=== PATIENT | male | born 1985 | race African-American/Black ===

== ENCOUNTER 2025-03-13 13:34 | Emergency (ER) | payer SELFPAY ==
--- NOTE | 2025-03-13 13:56 | ED.GENMED ---
History of Present Illness
General
Chief Complaint: Musculo-Skeletal Complaint
Source: patient
Exam Limitations: none
Time Seen by Provider: 03/13/25 13:55
Nursing documentation reviewed up to this point in time: agreed with
History of Present Illness
History of Present Illness:
TIME OF INITIAL EVALUATION
-14:09
REVIEW OF OLD RECORDS
- No prior records
CHIEF COMPLAINT(S)
Whole body cramping.
HISTORY OF PRESENT ILLNESS
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 Due
to the cramping�he fell down into the mulch although denies any injury. He denies any head strike. He denies any loss of consciousness or confusion. He denies any associated chest pain, shortness of breath, or dizziness associated with cramping.
The patient does report that it was very hot outside he is working however he did drink Gatorade and ate earlier today.
At time of my evaluation this patient symptoms have improved although he still feels a degree of cramping. No other concerns today.
SOCIAL HISTORY
The patient reports recreational cannabis use
Review of Systems
Review of Systems
Allergies reviewed?: Yes
All Other Systems: ROS reviewed and negative except as documented in HPI and ROS
Phy Exam
Physical Exam
Physical Exam:
PHYSICAL EXAM
- Vitals: Vital signs stable. Afebrile
- General: Well appearing in no distress.
- HEENT: Moist oral mucosa
- Cardiovascular: No murmurs, normal heart rate, regular rhythm, No chest wall tenderness
- Pulmonary: No respiratory distress, breath sounds are clear and equal
- Abdomen: Soft with no peritoneal signs, no tenderness
- Neurologic: Excellent strength all extremities, no coordination deficits
- Psychiatric: Appropriate mental status, normal insight and judgement
- Extremities: Nontender, no edema, moves all extremities equally. Negative Homans' sign bilaterally
- Skin: No rash, no lesions. Covered in mulch
Course
Orders/Labs/Results
Orders:
Orders
03/13/25 14:12
0.9% Sodium Chloride 1000 ml [Nss] 1,000 ml IV BOLUS
Ketorolac [Toradol] 15 mg IV NOW STA
03/13/25 14:44
Complete Blood Count/With Diff Urgent
Comprehensive Metabolic Panel Urgent
Magnesium Urgent
Total CK [Creatine Phosphokinase] Urgent
Abnormal Lab Results
03/13/25
14:44
WBC 10.9 H 10^3/uL
(4.8-10.8)
MPV 11.3 H fL
(7.4-10.4)
Abs Immat Gran (auto) 0.1 H 10^3/uL
(0-0.05)
Absolute Neuts (auto) 7.9 H 10^3/uL
(1.4-6.5)
Absolute Monos (auto) 0.7 H 10^3/uL
(0.1-0.6)
Immature Gran % 1.1 H %
(0-0.5)
Lymphocytes % 19.1 L %
(20.5-51.1)
Chloride 108 H mmol/L
(98-107)
Carbon Dioxide 20 L mmol/L
(22-30)
Creatinine 1.4 H mg/dL
(0.7-1.3)
Glucose 187 H mg/dl
(70-99)
Calcium 10.8 H mg/dl
(8.4-10.2)
Creatine Kinase 813 H U/L
(55-170)
Total Protein 8.7 H g/dl
(6.3-8.2)
Albumin 5.2 H g/dl
(3.5-5.0)
03/13/25 14:44
03/13/25 14:44
Vital Signs
Blood pressure: 105/71
Initial and Last Documented VS:
Initial Vital Signs
Pulse Resp Pulse Ox
60 20 100
03/13/25 13:43 03/13/25 13:43 03/13/25 13:43
Last Documented Vital Signs
Temp Pulse Resp BP Pulse Ox
97.8 F 54 19 105/71 98
03/13/25 16:59 03/13/25 16:59 03/13/25 16:59 03/13/25 16:59 03/13/25 14:05
MDM/Problems Addressed
Differential Diagnosis Includes:
The Differential Diagnosis includes, in no particular order and is not limited to:
- Electrolyte imbalance
- Dehydration
- Heat-related illness
- Acute exertional rhabdomyolysis
- Muscle strain or fatigue
- Hypocalcemia
- Hypomagnesemia
- Neurological disorder (less likely)
- Cardiac event (less likely)
- Infection (less likely)
MDM/Problems Addressed:
SUMMARY OF ENCOUNTER
The patient is a 39-year-old male who presented with full-body cramping after working outside in significant heat. He denied syncope or loss of consciousness, but experienced cramping severe enough to cause a fall. No injuries reported. Suspect
symptoms secondary to heat. ED plan: Check labs, CPK, and give IVF.
The patient received two liters of intravenous fluids, one in the ambulance and one in the emergency department. The patients symptoms resolved, and his vital signs remained stable.
INDEPENDENT REVIEW OF LABS AND INTERPRETATION OF TESTS
My independent review of the chemistry panel shows evidence of dehydration with elevated kidney function, Cr. 1.4 and elevated creatine kinase, 813.
Update: Patient symptoms have completely resolved after 2L IVF. He is ambulating around emergency department room without difficulty. He was rehydrated with 2L IVF. Feel stable for discharge home w/ close outpatient follow-up.
DISPOSITION & PLAN
The patient was discharged with instructions for careful monitoring and follow-up.
The plan includes educating the patient on hydration, advising rest, and providing follow-up with a free clinic to repeat laboratory work in one to two weeks to ensure normalization of kidney function and other potential abnormalities.
PATIENT EDUCATION AND COUNSELING
The patient was advised to stay well-hydrated, rest, and avoid excessive heat exposure. Emphasis was placed on the importance of follow-up lab work to ensure kidney function normalization.
FOLLOW-UP INSTRUCTIONS
The patient was instructed to follow up with a free clinic for repeat lab testing in one to two weeks and return to the emergency department if significant symptoms, such as infection, dehydration, or urinary difficulties, develop.
MEDICAL DECISION MAKING
1. Number & Complexity of Problems: Acute dehydration and elevated kidney function, likely secondary to heat and physical exertion.
2. Data Reviewed: Chemistry panel reviewed showing evidence of dehydration and elevation in kidney function and creatine kinase. Monitoring of response to intravenous fluid administration.
3. Risk: Consideration of admission/observation was made due to elevated kidney function but was determined unnecessary due to symptom resolution, normal vital signs, and planned follow-up.
Chronic conditions affecting care:
N/A
Acute Exacerbation and/or Progression of Chronic Illness:
N/A
*Pulse Oximetry
SaO2: 100
Oxygen Mode of Delivery: Room air
Patient hypoxic: no
*EKG
Interpreted by ED Provider?: NA
*Payroll Accounting Clerk Interpretation
Rate: Payroll Accounting Clerk- N/A
*Critical Care Note
Total Time (30-74mins, 75-104mins- exclusive of procedures): Not Applicable
ED Attending Note
-
Portions of this chart may have been created with voice recognition software.� Occasional wrong word or��sound alike� substitutions may have occurred due to the inherent limitations of voice recognition software.
Discharge Plan
Departure
Patient Disposition: Home (Routine Discharge)
Date of Disposition: 03/13/25
Time of Disposition: 16:28
Patient with high blood pressure during this ER visit?: No
Discharge Problem:
Acute dehydration
Instructions: Acute kidney injury, Dehydration in adults - ED discharge instructions
Referrals:
[facility] - Follow up in 1 week
NONE,* [Family Provider, Internal Medicine]
Stand Alone Forms: Return to Work
Activity Restrictions/Additional Instructions:
RETURN TO THE EMERGENCY DEPARTMENT WITH ANY PERSISTENT/WORSENING MUSCLE CRAMPS, SEVERE BACK PAIN, FEVER/CHILLS, OR SIGNS OF SEVERE DEHYDRATION INCLUDING LACK OF URINARY PRODUCTION, ETC., OR ANY OTHER CONCERNS
-Discussed that your lab work showed evidence of acute dehydration. Your kidney function was elevated while in the emergency department today which I suspect is likely secondary to dehydration however it is very important you have these labs
rechecked within 1 to 2 weeks to ensure trending down
-It is important stay well-hydrated. Please stay in a cool environment.
-Follow-up with the free clinic for further evaluation/management and to ensure that symptoms are improving and for repeat lab work
Monitor your symptoms closely and return to the emergency department with any acute worsening/new symptoms or any other concerns
Interventions
Interventions:
*Risk Screen - Suicide Last Done: 03/13/25 14:05
*General Assessment Last Done: 03/13/25 13:35
*Neglect/Abuse Screening Last Done: 03/13/25 14:05
*ED- Fall Risk Assessment Last Done: 03/13/25 13:35
*ED COVID-19 Vaccine History Last Done: 03/13/25 13:35
*Nursing Disposition Last Done: 03/13/25 17:06
ED-Musculoskeletal Assessment Last Done: 03/13/25 13:35
Discharge Date and Time
Discharge Date/Time: 03/13/25 17:08
Print Language: SAMI
[2025-03-13 14:00] VITALS: BP 95/79
[2025-03-13 14:05] VITALS: BP 130/74
[2025-03-13] MEDS: NSS 1000 IV (14:30)
[2025-03-13] MEDS: TORADOL 15 MG IV (14:52)
[2025-03-13 14:54] VITALS: BMI 21.6
[2025-03-13 14:54] LABS: % Basophils 0.7 % (0-2); % Eosinophils 0.4 % (0-6); % Immature Granulocytes 1.1 % (0-0.5); % Lymphocytes 19.1 % (20.5-51.1); % Neutrophils 72.7 % (42.2-75.2); Absolute Basophils 0.1 10^3/uL (0-0.2); Absolute Immature Granulocytes 0.1 10^3/uL (0-0.05); Absolute Lymphocytes 2.1 10^3/uL (1.2-3.4); Absolute Monocytes 0.7 10^3/uL (0.1-0.6); Absolute Neutrophils 7.9 10^3/uL (1.4-6.5); Hematocrit 39.9 % (39.0-52.0); Hemoglobin 14.6 g/dL (13.0-18.0); Mean Corp Hgb Conc. 36.6 g/dL (33.0-37.0); Mean Corpuscular Hgb 30.3 pg (27.0-31.0); Mean Corpuscular Volume 82.8 fL (80.0-94.0); Mean Platelet Volume 11.3 fL (7.4-10.4); Nucleated Red Blood Cells % 0 % (-); Platelet Count 234 10^3/uL (130-400); Red Blood Cell Count 4.82 10^6/uL (4.70-6.10); White Blood Cell Count 10.9 10^3/uL (4.8-10.8)
[2025-03-13 15:11] LABS: ALT (SGPT) 27 U/L (0-50); AST (SGOT) 28 U/L (17-59); Albumin 5.2 g/dl (3.5-5.0); Alkaline Phosphatase 75 U/L (38-126); Blood Urea Nitrogen 19 mg/dl (9-20); Calcium 10.8 mg/dl (8.4-10.2); Carbon Dioxide 20 mmol/L (22-30); Chloride 108 mmol/L (98-107); Creatine Phosphokinase 813 U/L (55-170); Estimated Creatinine Clearance 66 ml/min; Glucose 187 mg/dl (70-99); Magnesium 2.1 mg/dl (1.6-2.3); Potassium 3.7 mmol/L (3.5-5.1); Sodium 141 mmol/L (135-145); Total Bilirubin 1.2 mg/dl (0.2-1.3); Total Protein 8.7 g/dl (6.3-8.2); eGFR > 60.00
[2025-03-13 16:59] VITALS: BP 105/71
== END 2025-03-13 17:08 | disposition home or self-care (01) ==
LOC: EMR 13:34
PROVIDERS: Physician Assistant; EMERGENCY PHYSICIAN Emergency Medicine
DX: E86.0 Dehydration (principal); F12.90 Cannabis use, unspecified, uncomplicated
CPT/HCPCS: 99283; 96374; 80053; 82550; 83735; 85025